=== PATIENT | female | born 1965 | race Two or more races ===

== ENCOUNTER 2024-02-24 11:14 | Outpatient (AMB) | payer MEDICAID, SELFPAY ==
--- NOTE | 2024-02-24 10:58 | PD.ORTHTELE ---
Med/Allergies Allergies & Medications Allergies No Known Allergies Allergy (Verified 10/14/23 13:06) Subjective Visit Visit for: follow up visit Immunization / Flu Flu Vaccine in the Last 12 Months: Yes Flu Vaccine Exclusion Criteria: Already Received History of Present Illness Chief complaint: FOLLOW UP ON HIP REPLACEMENT Patient is doing well postoperatively. SHe has minimal pain in both hips. She is 12 months out From her left hip replacement Personal History Occupation: RETIRED Red flag PMH: none Pain Pain level (0-10): 8 Pain duration: ALL DAY Pain quality: sharp Ambulatory data Ambulatory device: none Treatments Improvement with previous injections: Yes Improvement with PT: Yes Improvement with NSAIDS: n/a Review of Systems Review of Systems: All systems negative unless otherwise noted in HPI. Assessment and Plan Problem List (1) History of total left hip arthroplasty: Status: Acute Plan: Patient is doing well status post left total hip replacement. She is now 1 year out from surgery. We reviewed her x-rays dated 02/22/2024. This demonstrates cementless total hip replacements in good alignment and position. Will see her in approximately 1 to 2 years (2) Osteoarthritis of left hip: Status: Acute (3) History of total right hip arthroplasty: Status: Acute Office Procedures GNS Level of Care Nursing/Assessment Patient Status: Established Patient Nursing Assessment/Reassesment: Medication Reconciliation, Update PMH in EMR and Vital Signs Coordination of Care: Complex Care and Chronic Disease 1-5, Education Complex Pt/Fam, Consent,records obtained, informed consent, Results/Orders obtained and Staff clarify orders Special Needs: Language special needs Established Patient Charge Established Patient Point Assignment: 95 Telehealth Telemed Phone/Video with patient at home & ,PA,RECORDS MANAGER: Yes
== END 2024-02-24 11:18 | disposition home or self-care (01) ==
LOC: HODSRG 11:14
PROVIDERS: Supervising Provider Orthopaedic Surgery Adult Reconstructive Orthopaedic Surgery; Visit Provider Orthopaedic Surgery Adult Reconstructive Orthopaedic Surgery
DX: Z96.642 Presence of left artificial hip joint (principal); M16.12 Unilateral primary osteoarthritis, left hip
CPT/HCPCS: 99212; G0463

== ENCOUNTER 2024-03-20 07:35 | Day surgery (SDC) | payer MEDICAID, SELFPAY ==
--- NOTE | 2024-03-19 07:00 | EKG_ITS ---
[facility] (Formerly [facility])[3] Test Date: 2024-03-19 Pat Name: MARGOT PATTON Department: Room: - Gender: Female Senior Relationship Manager: LU : 1965 Requested By: Eliezer Jerome Order Number: [id number] Reading MD: Eliezer Jerome Measurements Intervals [place] Rate: 59 P: 45 PA: 166 QRS: -10 QRSD: 108 T: -9 QT: 394 QTc: 393 Interpretive Statements SINUS BRADYCARDIA INCOMPLETE RIGHT BUNDLE BRANCH BLOCK NONSPECIFIC T-WAVE ABNORMALITY No previous ECG available for comparison /store/S0/[id number]/ecg/[id number].pdf
[2024-03-19 10:09] VITALS: BMI 38.0
[2024-03-19 10:43] LABS: Collection Type, Urine Clean Catch
[2024-03-19 11:43] LABS: Basophils # (Auto) 0.1 Thou/mm3 (0.0-0.2); Basophils % (Auto) 1 % (0-2.5); Eosinophils # (Auto) 0.1 Thou/mm3 (0.0-0.5); Eosinophils % (Auto) 1 % (0-10); Hematocrit 40.3 % (36.0-46.0); Hemoglobin 13.2 g/dL (12.0-16.0); Immature Granulocytes % (Auto) 1 % (0-0); Immature Granulocytes Auto 0.04 Thou/mm3 (0.00-0.00); Lymphocytes # (Auto) 2.7 Thou/mm3 (1.0-4.8); Lymphocytes % (Auto) 34 % (10-50); Mean Corpuscular HGB Conc 32.8 g/dl (31.0-37.0); Mean Corpuscular Hemoglobin 29.8 pg (25.0-35.0); Mean Corpuscular Volume 91 fL (80-100); Monocytes # (Auto) 0.7 Thou/mm3 (0.0-0.8); Monocytes % (Auto) 8 % (0-12); Neutrophils # (Auto) 4.5 Thou/mm3 (1.8-7.7); Neutrophils % (Auto) 56 % (37-80); Nucleated Red Blood Cell % 0 /100 WBC (0); Platelet Count 250 Thou/mm3 (140-440); RDW Standard Deviation 45.9 fL (36.4-46.3); Red Blood Count 4.43 Miln/mm3 (4.00-5.20)
[2024-03-19 11:43] LABS: Bilirubin,Urine Negative (Negative); Blood,Urine 2+ (Negative); Clarity,Urine Clear (Clear/Hazy); Color,Urine Lt-Yellow (Lt Yel-Yel); Glucose, Urine Negative (Negative); Ketones,Urine Negative (Negative); Leukocyte Esterase,Urine Negative (Negative); Nitrite,Urine Negative (Negative); Protein,Urine Trace (Neg - Trace); RBC,Urine 12 /hpf (0-3); Specific Gravity,Urine 1.016 (1.001-1.035); Squamous Epithelial Cell,Urine < 1 /hpf (0-5); Urobilinogen,Urine Negative mg/dL (0.0-1.0); WBC,Urine 1 /hpf (0-5)
[2024-03-19 11:53] LABS: Alanine Aminotransferase 23 U/L (10-49); Albumin, Serum 4.5 gm/dL (3.4-4.8); Albumin/Globulin Ratio 1.6 (1.2-2.2); Alkaline Phosphatase 90 U/L (46-116); Anion Gap 8 (7-16); Aspartate Amino Transferase 25 U/L (0-34); BUN/Creatinine Ratio 19 Ratio (12-20); Bilirubin,Total 0.5 mg/dL (0.3-1.2); Blood Urea Nitrogen 15 mg/dL (9-23); Calcium 9.8 mg/dL (8.3-10.6); Calcium (Corrected) 9.8 mg/dL (8.5-10.1); Carbon Dioxide 28.4 mMol/L (20.0-31.0); Chloride 102 mMol/L (98-107); Creatinine (Component) 0.8 mg/dL (0.6-1.3); Globulin 2.8 gm/dL (2.3-3.5); Glucose 76 mg/dL (74-106); Osmolality,Calculated 275 (275-295); Potassium 3.7 mMol/L (3.4-5.1); Sodium 138 mMol/L (136-145); Total Protein 7.3 gm/dL (5.7-8.2); eGFR > 60 See Note
[2024-03-20] VITALS (21 sets, daily range): BP systolic 98–157; BP diastolic 44–82; PULSE 61–74; RESP 12–95; TEMP 36.2–36.9; O2SAT 93–98; BMI 37.8
[2024-03-20] MEDS: RINGERS LACTATED 1000 ML 1,000 ML 20 ML IV (08:17)
--- NOTE | 2024-03-20 08:25 | ESHP_ITS ---
RE: MARGOT PATTON : 1965 DATE OF ADMISSION: 03/19/2024 HISTORY OF PRESENT ILLNESS: A 59-year-old Bel[place]ian speaking female who was referred to me with history of urinary stress incontinence. She loses urine on any kind of stress of sneezing, coughing, laughing. She has frequency, nocturia 4 times. The patient was seen also by other urologist in [place]. She is using diapers because she has an incontinence. PAST SURGICAL HISTORY: Prostheses in both hips, cholecystectomy.. PAST MEDICAL HISTORY: She has no history of diabetes mellitus. No history of hypertension. SOCIAL HISTORY: She has two children. ALLERGIES: NONE KNOWN. MEDICATIONS: None. PHYSICAL EXAMINATION: HEENT: Normal. NECK: Supple. LUNGS: Clear. CARDIOVASCULAR: Heart sounds are normal. ABDOMEN: Soft. The patient is 200 pounds. There is no organomegaly. No guarding. No rigidity. EXTREMITIES: Normal. PELVIC: Reveal grade 1-2 urethrocele. IMPRESSION: Urinary stress incontinence. The patient had cystoscopy done, which revealed normal capacity bladder, gross urinary stress incontinence, positive Gordo's test. No intravesical stones or tumors. No uninhibited bladder contractions. Impression was a gross urinary stress incontinence. PLAN: Treatment plan was discussed with the patient. The patient decides to have surgery. She is now scheduled to have bladder neck suspension, cystoscopy, urethrolysis with Lynx vaginal sling procedure. Planned procedure, risks and complications have been discussed with the patient. The patient has understood them and agreed to proceed. DT: 10:48:10 TT: 11:34:00 Ref: [id number] - TID: [id number]
--- NOTE | 2024-03-20 09:15 | CHAP ---
Gave patient encouragement and prayer.
--- NOTE | 2024-03-20 10:45 | SUR.PHASEI ---
1031 patient arrived to recovery room with oral airway in place, band aid x2 and peripad dry with no active bleeding, report received from Shreyas ABREU and Anshul JIMENEZ. 16fr chelo present and draining well 1035 oral airway removed 1050 patient fully awake, states having pain, will medicate for pain as ordered
[2024-03-20] MEDS: fentaNYL CIT INJ 50 mCg/ML AMP 2ML IV (10:55)
[2024-03-20] MEDS: ACETAMINOPHEN IVPB 1,000 MG/100 ML VIAL 250 MG IV (10:56)
[2024-03-20] MEDS: DEXTROSE 5%-LACTATED RINGERS 1,000 ML 100 ML IV (11:57)
--- NOTE | 2024-03-20 12:28 | SUR.PHASEII ---
pt resting comfortably in bed at this time, no c/o pain or discomfort at this time, report from Ivania ABREU
--- NOTE | 2024-03-20 13:10 | SUR.PHASEII ---
report to Ivania ABREU
[2024-03-20] MEDS: LEVOFLOXACIN/D5W 500 MG IVPB 500 MG/100 ML BAG 100 MG IV (14:22)
--- NOTE | 2024-03-20 16:53 | SUR.PHASEII ---
1620 patient is awake, alert, breathing unlabored, dressing dry with no bleeding, vaginal packing in place, no active vaginal bleeding noted, walton catheter draining clear yellow output, no blood clots noted. report given to geovanna ABREU, patient transferred to room 365 with all patient belongings, accompanied by Flo.
[2024-03-20] MEDS: KETOROLAC INJ 30 MG/ML VIAL IVP (17:21)
--- NOTE | 2024-03-20 22:47 | ESOP_ITS ---
RE: MARGOT PATTON : 1965 DATE OF OPERATION: 03/20/2024 PREOPERATIVE DIAGNOSIS: Gross urinary stress incontinence. POSTOPERATIVE DIAGNOSIS: Gross urinary stress incontinence. PROCEDURE PERFORMED: Bladder neck suspension, cystoscopy, urethrolysis with Lynx vaginal sling procedure. ANESTHESIA: General. INDICATION: The patient is a 59-year-old female who was referred to me with history of gross urinary stress incontinence. She loses urine on any kind of stress of sneezing, coughing, laughing. The patient had this problem going on for a while and she is very much bothered about it. She had cystoscopy, which revealed low residual urine, normal capacity bladder, no intravesical stones or tumors, no uninhibited bladder contractions, gross urinary stress incontinence with positive Gordo stress. The patient was given treatment options. She decided to have surgery. She is now scheduled to have bladder neck suspension, cystoscopy, urethrolysis, and Lynx vaginal sling procedure. Planned procedure, risks,and complications have been discussed with the patient. The patient understood them and agreed to proceed. DESCRIPTION OF PROCEDURE: After the patient was brought to the operating table under adequate general anesthesia, she was placed in dorsal lithotomy position, parts were prepped and draped in the usual fashion. A 16-Panamanian Rose catheter was then inserted into the bladder and was left indwelling. Anterior vaginal wall submucosal injection was then carried out with local anesthetic, which was Xylocaine with epinephrine. A small vertical incision of 0.5 cm was made between the mid urethra towards the bladder neck. Dissection was then carried out underneath the vaginal mucosa on both sides for about 2 cm. Deep endopelvic fascia was entered. Urethrolysis was carried out on both sides. Retropubic space was defined. At this point in the suprapubic area, 2 incisions were made on each side from about 2 cm from the midline. Lynx needles were passed from the suprapubic wound into the vaginal wound under finger control behind the pubic bone on both sides. At this point, cystoscopy was carried out. Rose catheter was removed. Cystoscope did not reveal any evidence of any injury to the bladder. The bladder appeared to be intact. There were no needles seen in the bladder. A cystoscope was then removed. A 16-Panamanian Rose catheter was reinserted into the bladder. Lynx vaginal sling was attached to both needles and was pulled in place. Excessive tension on the sling was avoided. Excess of the sling and the sleeve of the sling were removed. Anterior vaginal wall incision was then closed with continuous sutures of 2-0 chromic catgut sutures. Suprapubic wounds were closed with interrupted sutures of 3-0 chromic catgut sutures. Kerlix soaked in Betadine solution was used as vaginal packing. Sterile dressing was then applied. The patient was then transferred to the recovery room in a satisfactory condition, having tolerated the entire procedure well. Sponge count and needle count at the end of the procedure was found to be correct. Estimated blood loss was approximately 20 mL. DT: 11:56:42 TT: 14:37:00 Ref: [id number] - TID: [id number]
[2024-03-20] MEDS: GABAPENTIN 300 MG CAPSULE PO (23:57)
[2024-03-21] VITALS: BP 150/69; PULSE 76; RESP 17; TEMP 36.6; O2SAT 95
[2024-03-21] MEDS: DEXTROSE 5%-LACTATED RINGERS 1,000 ML 100 ML IV
[2024-03-21] MEDS: HYDROcodone/APAP 5/325 TABLET 1 TAB PO (03:11)
[2024-03-21 04:00] VITALS: BP 142/61; PULSE 78; RESP 17; TEMP 36.1; O2SAT 93
[2024-03-21 05:48] LABS: Basophils % (Auto) 0 % (0-2.5); Eosinophils % (Auto) 0 % (0-10); Hematocrit 36.5 % (36.0-46.0); Hemoglobin 12.2 g/dL (12.0-16.0); Immature Granulocytes % (Auto) 1 % (0-0); Immature Granulocytes Auto 0.07 Thou/mm3 (0.00-0.00); Lymphocytes # (Auto) 1.2 Thou/mm3 (1.0-4.8); Lymphocytes % (Auto) 8 % (10-50); Mean Corpuscular HGB Conc 33.4 g/dl (31.0-37.0); Mean Corpuscular Volume 90 fL (80-100); Monocytes # (Auto) 0.8 Thou/mm3 (0.0-0.8); Monocytes % (Auto) 5 % (0-12); Neutrophils # (Auto) 12.8 Thou/mm3 (1.8-7.7); Neutrophils % (Auto) 86 % (37-80); Nucleated Red Blood Cell % 0 /100 WBC (0); Platelet Count 193 Thou/mm3 (140-440); RDW Standard Deviation 44.5 fL (36.4-46.3); Red Blood Count 4.06 Miln/mm3 (4.00-5.20); White Blood Count 14.8 Thou/mm3 (3.6-11.0)
[2024-03-21 06:20] LABS: Albumin, Serum 3.9 gm/dL (3.4-4.8); Anion Gap 8 (7-16); BUN/Creatinine Ratio 20 Ratio (12-20); Blood Urea Nitrogen 20 mg/dL (9-23); Calcium 9.5 mg/dL (8.3-10.6); Calcium (Corrected) 9.6 mg/dL (8.5-10.1); Carbon Dioxide 24.6 mMol/L (20.0-31.0); Chloride 105 mMol/L (98-107); Glucose 146 mg/dL (74-106); Osmolality,Calculated 281 (275-295); Phosphorous 2.9 mg/dL (2.4-5.1); Potassium 3.5 mMol/L (3.4-5.1); Sodium 138 mMol/L (136-145); eGFR > 60 See Note
[2024-03-21] MEDS: KETOROLAC INJ 30 MG/ML VIAL IVP (07:15)
[2024-03-21 07:59] VITALS: BP 146/64; PULSE 70; RESP 18; TEMP 36.7; O2SAT 95
[2024-03-21] MEDS: LEVOFLOXACIN/D5W 500 MG IVPB 500 MG/100 ML BAG 100 MG IV (08:14)
[2024-03-21 12:00] VITALS: BP 151/72; PULSE 69; RESP 17; TEMP 36.1; O2SAT 95
== END 2024-03-21 13:26 | disposition home or self-care (01) ==
LOC: S2EX 10:30 → S3NX 16:38
PROVIDERS: Anesthesiology; PCP Nurse Practitioner Family; Referring Provider Surgery; Visit Provider Surgery
PROC: 0TJB8ZZ Inspection of Bladder, Via Natural or Artificial Opening Endoscopic (ICD-10-PCS; CPT 57288; principal; 2024-03-20 09:30)
DX: N39.3 Stress incontinence (female) (male) (principal); Z01.810 Encounter for preprocedural cardiovascular examination
CPT/HCPCS: 57288; 36415; 80053; 80069; 81001; 85025; 87086; 93005; A4217; A4649; C1771; J0131; J1100; J1885; J1956; J2250; J2405; J2704; J3010; J3490; J7120; J7121; A9270